=== PATIENT | male | born 1985 | race Two or more races ===

== ENCOUNTER 2022-07-31 09:03 | Emergency (ER) | payer OTHER ==
[~2022-07-31] VITALS: Ht 172.7 cm; Wt 73.0 kg
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
[2022-07-31] MEDS ORDERED: IBUPROFEN 600 MG TABLET ONE (09:29)
[2022-07-31] MEDS ORDERED: IBUPROFEN 600 MG TABLET PO ONE (09:30)
--- NOTE | 2022-07-31 09:30 | NUR ---
Merry hu in [facility] - 07/31/22 at 0936 by SHANON APPLIED ICE CARLEY GASCA
--- NOTE | 2022-07-31 09:30 | NUR ---
ICED PACK APPLIED RIGHT WRIST
--- NOTE | 2022-07-31 09:56 | NUR ---
Patient discharged to home in stable condition. Written and verbal after care instructions given. Patient verbalizes understanding of instruction.
--- NOTE | 2022-07-31 09:56 | NUR ---
EMT APPLIED SPLINT AT BEDSIDE
[2022-07-31 09:57] VITALS: BP 133/81
== END 2022-07-31 09:57 | disposition home or self-care (01) ==
LOC: ER 09:08
DX: S60.211A Contusion of right wrist, initial encounter (principal); Z60.2 Problems related to living alone; W23.0XXA Caught, crushed, jammed, or pinched between moving objects, initial encounter; Y93.89 Activity, other specified; Y92.89 Other specified places as the place of occurrence of the external cause; Y99.8 Other external cause status
CPT/HCPCS: 73090-TC; 73110; 73130-TC